=== PATIENT | female | born 2000 | race Caucasian/White ===

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

== ENCOUNTER 2020-09-23 12:26 | Emergency (ER) | payer MEDICAID ==
[~2020-09-23] VITALS: Ht 160 cm; Wt 104.0 kg
[2020-09-23 12:32] VITALS: BP 136/74
== END 2020-09-23 13:06 | disposition left against medical advice (07) ==
LOC: ER 12:27
DX: R55 Syncope and collapse (principal); R11.0 Nausea; R41.89 Other symptoms and signs involving cognitive functions and awareness
CPT/HCPCS: 99283

== ENCOUNTER 2022-12-13 09:32 | Emergency (ER) | payer MEDICAID ==
[~2022-12-13] VITALS: Ht 160 cm; Wt 109.0 kg
[2022-12-13 09:42] VITALS: BP 155/87
[2022-12-13] MEDS ORDERED: IBUP-1986 PO (10:58)
[2022-12-13] MEDS ORDERED: ketorolac trometh inj. 60 MG/2 ML VIAL IM ONE (11:00)
[2022-12-13] MEDS ORDERED: bacitracin 15gm ointment TP ONE (11:00)
== END 2022-12-13 12:52 | disposition home or self-care (01) ==
LOC: ER 09:32
DX: S80.811A Abrasion, right lower leg, initial encounter (principal); S00.31XA Abrasion of nose, initial encounter; M25.531 Pain in right wrist; W10.8XXA Fall (on) (from) other stairs and steps, initial encounter; Y93.89 Activity, other specified; Y92.89 Other specified places as the place of occurrence of the external cause; Y99.8 Other external cause status
CPT/HCPCS: 73090; 96372; 99284; J1885; A4565; A6449